=== PATIENT | female | born 1990 | race Caucasian/White ===

== ENCOUNTER 2019-10-11 11:27 | Emergency (ER) | payer SELFPAY ==
[2019-10-11 11:57] LABS: BILIRUBIN,URINE NEGATIVE (NEGATIVE); GLUCOSE, URINE (UA) NEGATIVE (NEGATIVE); KETONES,URINE (UA) NEGATIVE (NEGATIVE); LEUKOCYTE ESTERASE, URINE NEGATIVE (NEGATIVE); NITRITE,URINE POSITIVE (NEGATIVE); OCCULT BLOOD,URINE NEGATIVE (NEGATIVE); PROTEIN,URINE NEGATIVE (NEGATIVE); UROBILINOGEN,URINE 0.2 (NORMAL) E.U./dL (NORMAL)
[2019-10-11 11:59] LABS: CLARITY,URINE CLEAR (CLEAR)
--- NOTE | 2019-10-11 12:00 | ED Physician Documentation ---
History of Present Illness - Stated complaint Stated Complaint: ABD PX - Chief complaint Chief Complaint: Abd Pain - History obtained from History obtained from: Patient - History of Present Illness Timing: How many weeks ago (4) Pain level max: 3 Pain level now: 0 - Additonal information Additional information: 29-year-old female presents to the emergency department with a chief complaint of intermittent right lower quadrant abdominal pain for about the last month.She is unable to relate whether the pain is worse after activity or eating. She has had no fevers nausea or vomiting. Last menstrual period was approximately 1 month ago. However over the last week patient has noted that she has been having increased urinary frequency and often does not feel like she fully empties her bladder. This morning she felt chilled and sweaty and therefore decided to present to the emergency department for treatment. She denies any current or active abdominal pain. No pertinent past surgical history. Patient denies any history of diabetes, no recent weight loss. Review of Systems Constitutional: denies: Fever, Chills Cardiac: denies: Chest pain / pressure, Palpitations Respiratory: denies: Dyspnea, Cough GI: reports: Abdominal Pain. denies: Nausea, Vomiting, Constipation, Diarrhea, Hematemesis, Bloody / black stool : reports: Frequency, LMP (30 days). denies: Dysuria Skin: denies: Rash, Lesions Neurologic: denies: Generalized weakness, Syncope, Seizure PD PAST MEDICAL HISTORY - Past Surgical History Past Surgical History: No - Present Medications Home Medications: Ambulatory Orders Medication Instructions Recorded Confirmed Cephalexin [Keflex] 500 mg PO Q6H 7 Days capsule 02/13/16 Ibuprofen [Motrin] 800 mg PO Q8H PRN #20 tablet 02/13/16 Sulfamethoxazole/Trimethoprim 1 each PO BID 7 Days tablet 02/13/16 [Bactrim Ds Tablet] Cephalexin [Keflex] 500 mg PO BID #14 capsule 10/11/19 - Allergies Allergies/Adverse Reactions: Allergies Allergy/AdvReac Type Severity Reaction Status Date / Time No Known Drug Allergies Allergy Verified 10/11/19 11:35 - Social History Does the pt smoke?: Yes Smoking Status: Current every day smoker Does the pt drink ETOH?: No Does the pt have substance abuse?: No - Immunizations Immunizations are current?: Yes Immunizations: TDAP current <10years - POLST Patient has POLST: No PD ED PE NORMAL - General General: Alert and oriented X 3, No acute distress, Well developed/nourished - HEENT HEENT: PERRL, EOMI - Neck Neck: No adenopathy - Cardiac Cardiac: RRR, No murmur - Respiratory Respiratory: No respiratory distress, Clear bilaterally - Abdomen Abdomen: Normal bowel sounds, Non distended (No focal abdominal pain. Negative Hussein's. Negative McBurney's. no guarding or rebound). 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, No motor deficit, No sensory deficit Results - Vitals Vitals: Vital Signs - 24 hr 10/11/19 10/11/19 10/11/19 11:31 12:26 12:51 Temperature 36.7 C Heart Rate 121 H 84 80 Respiratory 18 16 16 Rate Blood Pressure 137/97 H 104/57 L 109/75 O2 Saturation 100 100 100 Oxygen O2 Source Room air - Labs Labs: Laboratory Tests 10/11/19 10/11/19 10/11/19 11:53 12:16 12:16 WBC 8.3 RBC 4.52 Hgb 14.0 Hct 41.2 MCV 91.2 MCH 31.0 MCHC 34.0 RDW 12.5 Plt Count 303 MPV 8.4 Neut # (Auto) 5.2 Lymph # (Auto) 2.2 Sargent # (Auto) 0.5 Eos # (Auto) 0.2 Baso # (Auto) 0.1 Absolute Nucleated RBC 0.00 Nucleated RBC % 0.0 Sodium 137 Potassium 4.0 Chloride 101 Carbon Dioxide 26 Anion Gap 10.0 BUN 19 Creatinine 0.8 Estimated GFR (MDRD) 84 L Glucose 82 Calcium 9.3 Total Bilirubin 0.6 AST 23 ALT 32 Alkaline Phosphatase 35 L Total Protein 6.9 Albumin 4.5 Globulin 2.4 Albumin/Globulin Ratio 1.9 Lipase 39 Urine Color YELLOW Urine Clarity CLEAR Urine pH 7.0 Ur Specific [place] 1.020 Urine Protein NEGATIVE Urine Glucose (UA) NEGATIVE Urine Ketones NEGATIVE Urine Occult Blood NEGATIVE Urine Nitrite POSITIVE H Urine Bilirubin NEGATIVE Urine Urobilinogen 0.2 (NORMAL) Ur Leukocyte Esterase NEGATIVE Urine RBC None Seen Urine WBC 0-3 Ur Squamous Epith Cells RARE Squamous Urine Bacteria Many H Ur Microscopic Review INDICATED Urine Culture Comments INDICATED Urine HCG, Qual NEGATIVE PD MEDICAL DECISION MAKING - ED course Complexity details: reviewed results, re-evaluated patient, d/w patient, d/w family ED course: 29-year-old female presents to the emergency department with chief complaint of intermittent right-sided abdominal pain with some urinary frequency for the last month. - Serum chemistry revealed no leukocytosis. Renal function is preserved. Her urine is consistent with infection. She has nitrites and rare bacteria. A culture is pending.However given chills and increasing pain I am concerned that she may have been a sending infection. Though not quite [place] at this time. - Patient given 1 g of ceftriaxone in the emergency department and will discharge with Keflex to be given twice a day for 7 days. We discussed emergent return precautions for concerns of worsening infection. At this time she appears hemodynamically stable her initial tachycardia has resolved after 1 L of IV fluids patient feels ready for discharge home. Departure - Departure Disposition: 01 Home, Self Care Clinical Impression: Cystitis Condition: Stable Instructions: ED Bladder Infec Cystitis Vs Pyelo Ch Prescriptions: Cephalexin [Keflex] 500 mg PO BID #14 capsule Comments: Cherelle it looks like you have an infection in your urine. This is the most likely cause of this intermittent pain. Please fill the prescription for the antibiotics and begin taking as directed. I would expect your pain to be better in the next 48 to 72 hours if your symptoms are worsening, you develop fevers, uncontrolled vomiting or you feel that you are not improving then please return for a second evaluation
[2019-10-11] MEDS ORDERED: SODIUM CHLORIDE 0.9% 1,000 ML IV STA (12:12)
[2019-10-11 12:15] LABS: BACTERIA,URINE Many /HPF (None Seen); RBC,URINE None Seen /HPF (0-5); SQUAMOUS EPITHELIAL CELL,UR RARE Squamous (<= Few)
[2019-10-11 12:24] LABS: BASOPHILS # (AUTO) 0.1 10^3/uL (0.0-0.1); BASOPHILS % (AUTO) 0.7 %; EOSINOPHILS # (AUTO) 0.2 10^3/uL (0.0-0.7); EOSINOPHILS % (AUTO) 2.9 %; LYMPHOCYTES # (AUTO) 2.2 10^3/uL (1.5-3.5); LYMPHOCYTES % (AUTO) 26.4 %; MEAN CORPUSCULAR VOLUME 91.2 fL (81.0-99.0); MEAN PLATELET VOLUME 8.4 fL (7.9-10.8); MONOCYTES # (AUTO) 0.5 10^3/uL (0.0-1.0); MONOCYTES % (AUTO) 6.3 %; NEUTROPHILS # (AUTO) 5.2 10^3/uL (1.5-6.6); NEUTROPHILS % (AUTO) 63.3 %; PLT - PLATELET COUNT 303 10^3/uL (130-450); RED BLOOD COUNT 4.52 10^6/uL (4.20-5.40); RED CELL DISTRIBUTION WIDTH 12.5 % (12.0-15.0); WHITE BLOOD COUNT 8.3 x10^3/uL (4.8-10.8)
[2019-10-11 12:24] LABS: HCG UR QUAL NEGATIVE
[2019-10-11 12:37] LABS: ALBUMIN 4.5 g/dL (3.2-5.5); ALBUMIN/GLOBULIN RATIO 1.9 (1.0-2.2); BILIRUBIN,TOTAL 0.6 mg/dL (0.2-1.0); CALCIUM 9.3 mg/dL (8.5-10.3); CREATININE 0.8 mg/dL (0.4-1.0); TOTAL PROTEIN 6.9 g/dL (6.7-8.2)
[2019-10-11] MEDS ORDERED: IBUPROFEN 600 MG TABLET PO STA (13:07)
[2019-10-11] MEDS ORDERED: cefTRIAXone 1 GM VIAL IM STA (13:08)
[2019-10-11] MEDS ORDERED: LIDOCAINE 1% 2 ML VIAL MC ONE (13:08)
[2019-10-11] MEDS ORDERED: cefTRIAXone 1 GM in SODIUM CHLORIDE 0.9% MINIBAG 100 ML IV STA (13:43)
[2019-10-11 14:16] VITALS: BP 115/73
== END 2019-10-11 14:25 | disposition home or self-care (01) ==
LOC: ED 11:27
DX: N30.90 Cystitis, unspecified without hematuria (principal); F17.200 Nicotine dependence, unspecified, uncomplicated
CPT/HCPCS: 36415; 80053; 81001; 81025; 83690; 85025; 87077; 87086; 87181; 96361; 96365; 99284; A9270; 81003

== ENCOUNTER 2020-01-17 08:00 | Outpatient (CLI) | payer MEDICAID ==
[2020-01-17 16:20] LABS: MUDS CUTOFF CONCENTRATIONS CUTOFF CONC BELOW:
[2020-01-17 16:59] LABS: BILIRUBIN,URINE NEGATIVE (NEGATIVE); GLUCOSE, URINE (UA) NEGATIVE (NEGATIVE); KETONES,URINE (UA) NEGATIVE (NEGATIVE); LEUKOCYTE ESTERASE, URINE NEGATIVE (NEGATIVE); NITRITE,URINE NEGATIVE (NEGATIVE); OCCULT BLOOD,URINE TRACE-INTA (NEGATIVE); PROTEIN,URINE NEGATIVE (NEGATIVE); UROBILINOGEN,URINE 0.2 (NORMAL) E.U./dL (NORMAL)
[2020-01-17 17:20] LABS: BACTERIA,URINE None Seen /HPF (None Seen); CLARITY,URINE CLEAR (CLEAR); RBC,URINE 0-5 /HPF (0-5); SQUAMOUS EPITHELIAL CELL,UR MOD Squamous (<= Few)
[2020-01-17 17:21] LABS: AMPHETAMINE SCREEN,URINE NEGATIVE (NEGATIVE); BENZODIAZEPINES SCREEN, URINE NEGATIVE (NEGATIVE); COCAINE SCREEN URINE NEGATIVE (NEGATIVE); METHADONE SCREEN, URINE NEGATIVE (NEGATIVE); METHAMPHETAMINES SCREEN, URINE NEGATIVE (NEGATIVE); OPIATE SCREEN, URINE NEGATIVE (NEGATIVE); OXYCODONE SCREEN, URINE NEGATIVE (NEGATIVE); PROPOXYPHENE SCREEN, URINE NEGATIVE (NEGATIVE); TRICYCLIC ANTIDEPRESSANT,URINE NEGATIVE (NEGATIVE)
== END 2020-01-17 23:59 | disposition home or self-care (01) ==
LOC: LAB.R 08:00
PROVIDERS: ATTEND Nurse Practitioner Obstetrics & Gynecology
DX: Z34.90 Encounter for supervision of normal pregnancy, unspecified, unspecified trimester (principal)
CPT/HCPCS: 80306; 81001; 87086

== ENCOUNTER 2020-01-17 12:43 | Outpatient (CLI) | payer MEDICAID ==
[2020-01-17 13:05] LABS: BASOPHILS # (AUTO) 0.1 10^3/uL (0.0-0.1); BASOPHILS % (AUTO) 0.4 %; EOSINOPHILS # (AUTO) 0.2 10^3/uL (0.0-0.7); EOSINOPHILS % (AUTO) 1.3 %; HGB - HEMOGLOBIN 11.8 g/dL (12.0-16.0); LYMPHOCYTES # (AUTO) 1.6 10^3/uL (1.5-3.5); LYMPHOCYTES % (AUTO) 11.3 %; MEAN CORPUSCULAR HEMOGLOBIN 31.1 pg (27.0-31.0); MEAN CORPUSCULAR HGB CONC 34.3 g/dL (32.0-36.0); MEAN CORPUSCULAR VOLUME 90.8 fL (81.0-99.0); MEAN PLATELET VOLUME 8.6 fL (7.9-10.8); MONOCYTES # (AUTO) 0.7 10^3/uL (0.0-1.0); MONOCYTES % (AUTO) 4.8 %; NEUTROPHILS # (AUTO) 11.1 10^3/uL (1.5-6.6); NEUTROPHILS % (AUTO) 81.5 %; PLT - PLATELET COUNT 429 10^3/uL (130-450); RED BLOOD COUNT 3.79 10^6/uL (4.20-5.40); RED CELL DISTRIBUTION WIDTH 12.1 % (12.0-15.0); WHITE BLOOD COUNT 13.7 x10^3/uL (4.8-10.8)
[2020-01-18 12:31] LABS: HEPATITIS B SURFACE ANTIGEN NON-REACTIVE (NON-REACTIVE); HEPATITIS C ANTIBODY NON-REACTIVE (NON-REACTIVE)
[2020-01-18 14:17] LABS: HIV AG/AB 4TH GEN NON-REACTIVE (NON-REACTIVE)
== END 2020-01-17 12:44 | disposition home or self-care (01) ==
LOC: LAB 12:43
PROVIDERS: ATTEND Nurse Practitioner Obstetrics & Gynecology
DX: Z34.90 Encounter for supervision of normal pregnancy, unspecified, unspecified trimester (principal)
CPT/HCPCS: 36415; 81599; 85025; 86592; 86762; 86787; 86803; 86850; 86870; 86880; 86900; 86901; 87340; 87389

== ENCOUNTER 2020-01-28 08:39 | Outpatient (CLI) | payer MEDICAID ==
--- NOTE | 2020-01-28 14:13 | Ultrasound Report ---
PROCEDURE: Right pulmonary radiopacities redemonstrated. The lungs are otherwise clear. INDICATIONS: SUPERVISION OF NORMAL PREG OUTSIDE/PRIOR DATING DATA: Last menstrual period (LMP): 09/11/2019. LMP-based estimated date of delivery (ELIZ): 06/17/2020. First dating scan (date and location): 01/28/2020. [facility]. Estimated date of delivery (ELIZ) from first dating scan: Twin A: 06/23/2020. Twin B: 06/20/2020 TECHNIQUE: Real-time scanning was performed of the fetus, with image documentation and biometric measurements. Endovaginal scanning: Not performed COMPARISON: None. FINDINGS: General: Please note, this patient is late to care and separate placentas cannot be appreciated. It i s unclear whether this is a monochorionic or dichorionic . Amniotic fluid index A: 15.1 cm. Amniotic fluid index B: 18.6 cm. Maternal cervical canal: 4.8 cm; normal length is 2.5 cm or more. FETUS A: Fetus is cephalic in presentation. Placental position is anterior. The inferior margin of the placenta is 1.6 cm from the cervical os. heart rate: 150 beats per minute. biometrics: Biparietal diameter: 4.4 cm, 19 weeks, 2 days Head circumference: Abdominal circumference: 16.1 cm, 18 weeks 6 days Femur length: 2.8 cm, 18 weeks 4 days Estimated gestational age from initial scan: not applicable. Composite gestational age from present scan: 19 weeks, 0 days Estimated weight and percentile: 273 g Measurement variability in biometric dating: +/- 10 days from 12-20 weeks gestation, +/- 2 weeks from 20-30 weeks gestation, +/- 3 weeks at 30 weeks gestation or later. Anatomic survey: Neuro: Not examined Nuchal skin fold: Not examined Face: Not examined Spine: Not examined Heart: 4 chambered heart is present. Ventricular outflow tracts are not well characterized. Diaphragm: Diaphragm is intact. Stomach: Left-sided stomach is present. Kidneys: No hydronephrosis. Normal is less than 5 mm in 2nd trimester, less than 7 mm in 3rd trimester. Cord: 3-vessel cord with marginal insertion. Bladder: Normal in size. Extremities: The right upper and right lower limbs have a normal appearance. Left lens could not be e valuated. FETUS B: Fetus is in breech presentation. Placental position is located anterior. The inferior margin of the placenta is 1.6 cm above the cervi manohar loss. heart rate: 133 beats per minute. biometrics: Biparietal diameter: 4.6 cm, 19 weeks, 6 days Head circumference: 16.6 cm, 19 weeks, 2 days Abdominal circumference: 14.7 cm, 20 weeks, 0 days Femur length: 2.9 cm, 18 weeks, 5 days Estimated gestational age from initial scan: not applicable. Composite gestational age from present scan: 19 weeks, 3 days Estimated weight and percentile: 291 g Measurement variability in biometric dating: +/- 10 days from 12-20 weeks gestation, +/- 2 weeks from 20-30 weeks gestation, +/- 3 weeks at 30 weeks gestation or later. Anatomic survey: Neuro: Not examined Nuchal skin fold: Not examined. Face: Not examined. Spine: Not examined. Heart: 4 chambered heart is present. Ventricular outflow tracts were not examined. Diaphragm: Diaphragm is intact. Stomach: Left-sided stomach is present. Kidneys: No hydronephrosis. Normal is less than 5 mm in 2nd trimester, less than 7 mm in 3rd trimester. Cord: 3-vessel cord has orthotopic insertion. Bladder: Normal in size. Extremities: The right upper and lower limbs were visualized. The left limbs were not visualized. IMPRESSION: 1. Markedly limited exam given patient late to care. 2 solitary placentas are not visualized. It is u nclear whether this is a monochorionic or chorionic gestation. 2. Marginal inferior insertion of the placenta 1.6 cm from the cervical os. 3. Marginal cord insertion of twin A. 4. Composite gestational age of twin A is 19 weeks, 0 days and composite gestational age of twin B is 19 weeks, 3 days. 4. Limited anatomy interrogated is within normal limits. There is a new central venous catheter, the tip of which is projected over the right atrium. Patient is status post median sternotomy and CABG. Reviewed by: Марина Varela MD on 01/28/2020 2:12 PM PDT Approved by: Марина Varela MD on 01/28/2020 2:12 PM PDT Station ID: [id number]
== END 2020-01-28 08:40 | disposition home or self-care (01) ==
LOC: DI 08:39
PROVIDERS: ATTEND Nurse Practitioner Obstetrics & Gynecology
DX: Z34.92 Encounter for supervision of normal pregnancy, unspecified, second trimester (principal)
CPT/HCPCS: 76805; 76810

== ENCOUNTER 2020-02-24 18:15 | Outpatient (CLI) | payer MEDICAID ==
[2020-02-24 18:49] VITALS: BP 126/77
--- NOTE | 2020-02-24 19:59 | PROVIDER PROGRESS NOTE ---
- HPI Chief Complaint: Other (Patient is a 29 yo at 23+5 wga with a affected by Olimpia twin gestation here with decreased movement. Usually feels activity at the uterine fundus below the epigastric area. Movement was less noticeable today. No VB/LOF/CTX. Presents for viability assessment.) Current : Vital Signs Temperature 99.5 F 02/24/20 18:45 Heart Rate 105 H 02/24/20 18:45 Respiratory Rate 16 02/24/20 18:45 Blood Pressure 126/77 02/24/20 18:45 O2 Saturation 100 02/24/20 18:45 Temperature 99.5 F 02/24/20 18:45 Heart Rate 105 H 02/24/20 18:45 Respiratory Rate 16 02/24/20 18:45 Blood Pressure 126/77 02/24/20 18:45 O2 Saturation 100 02/24/20 18:45 - Exam GEN: NAD HEENT: NCAT CV: RR RESP: nl effort ABD: gravid, S&NT/ND FH ~30 EXT: WWP, no LE edema PSYCH: appropriate affect NEURO: A&) FHT A: 165 FHT B: 167 tracing was obtained on both fetus A and B despite previable gestational age Both tracings were AGA Bedisde us was performed to identify individual heart rates. Both fetuses were confirmed as viable with independent hert rates and demonstrated activity on us - Procedures Service Date of procedure: 02/24/20 - Plan Plan: 29 yo at 23+5 wga with Olimpia twin gestation here with decreased movement viability demonstrated with EFM that was AGA for both fetus A and B Bedside us showed both active heart rates and ample movement in both twins Patient was reassured Warning signs reviewed Discharged to home
== END 2020-02-24 19:45 | disposition home or self-care (01) ==
LOC: WFO 18:15 → FBP 18:17 → WFO 19:45
PROVIDERS: ATTEND Obstetrics & Gynecology
DX: O36.8130 Decreased fetal movements, third trimester, not applicable or unspecified (principal); O30.032 Twin pregnancy, monochorionic/diamniotic, second trimester; Z3A.23 23 weeks gestation of pregnancy
CPT/HCPCS: 99213

== ENCOUNTER 2023-02-21 23:06 | Emergency (ER) | payer MEDICAID, OTHER ==
[2023-02-21 23:21] VITALS: BP 130/82; O2SAT 100
[2023-02-21] MEDS ORDERED: HYDROcod/ACETAM 5/325 MG TABLET PO STA (23:33)
[2023-02-21] MEDS ORDERED: AMOXICILLIN 250 MG CAPSULE PO STA (23:33)
[2023-02-21] MEDS ORDERED: HYDROcod/ACET 5/325 Prepack 4 PO STA (23:33)
--- NOTE | 2023-02-21 23:35 | ED Physician Documentation ---
PD HPI HEENT - Stated complaint Stated Complaint: LT SIDE FACE SWOLLEN - Chief complaint Chief Complaint: Heent - History obtained from History obtained from: Patient - Additional information Additional information: The patient comes to the emergency department with chief complaint of left facial swelling that started yesterday. She states that she has a lot of dental problems and that she believes the pain and swelling is coming from one of her maxillary teeth. The patient denies any drainage. No swelling of her tongue or throat. No fevers or chills. She states that she started taking Keflex last night and that so far has not done any good. She has had a total of 4 doses. The patient does not have a dentist and has not been in a long time. No other complaints at this time. 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 - Present Medications Home Medications: Ambulatory Orders Medication Instructions Recorded Confirmed Amoxicillin 500 mg PO TID 7 Days #21 cap 02/21/23 HYDROcod/ACETAM 5/325 [[place] 5/325] 1 - 2 tablet PO Q6H PRN #10 tablet 02/21/23 - Allergies Allergies/Adverse Reactions: Allergies Allergy/AdvReac Type Severity Reaction Status Date / Time No Known Drug Allergies Allergy Verified 02/21/23 23:16 - Social History Does the pt smoke?: Yes Smoking Status: Current every day smoker Does the pt drink ETOH?: No Does the pt have substance abuse?: No - Immunizations Immunizations are current?: Yes Immunizations: TDAP current <10years - POLST Patient has POLST: No PD ED PE NORMAL - Vitals Vital signs reviewed: Yes - General General: Alert and oriented X 3, No acute distress, Well developed/nourished - HEENT HEENT: Atraumatic, PERRL, EOMI, Moist mucous membranes, Dentition benign (Poor dentition with multiple missing or severely decayed teeth.), Other (Moderate edema without erythema, left face. Edematous, fluctuant gingival focus over the patient's left first molar stump. Tooth decayed down to the gumline. No drainage. No induration or fluctuance of cheek.) - Respiratory Respiratory: No respiratory distress - Derm Derm: Normal color, Warm and dry, No rash - Extremities Extremities: No deformity, Other (Grossly normal) - Neuro Neuro: Alert and oriented X 3 - Psych Psych: Normal mood, Normal affect Results - Vitals Vitals: Vital Signs - 24 hr 02/21/23 23:10 Temperature 36.8 C Heart Rate 114 H Respiratory 18 Rate Blood Pressure 130/82 H O2 Saturation 100 Oxygen O2 Source Room air PD Medical Decision Making - ED course Complexity details: considered differential, d/w patient ED course: The patient was started on amoxicillin here in the emergency department and given a dose of Vicodin as well. I discussed symptomatic management at home with her as well as the need to be consistent with antibiotics. I have prescribed amoxicillin and have advised the patient that she will need to get it first thing in the morning and take the next dose right then to avoid any lapse in antibiotic treatment. I discussed with the patient that we will take a few days for her symptoms to begin to turn around noticeably, but that she should return to the emergency department immediately, should she begin to experience any swelling of her tongue or throat. We have discussed methods to try to get the collection to drain, as well. I have given the patient phone numbers of multiple dental clinics in [place], as well as contact information for Dr. Barrett, the oral surgeon. Departure - Departure Disposition: 01 Home, Self Care Clinical Impression: Dental infection Condition: Stable Instructions: ED Abscess Tooth Follow-Up: OSVALDO BARRETT [Physician No Access] - Osvaldo Barrett DDS [Provider Admit Priv/Credential] - Prescriptions: Amoxicillin 500 mg PO TID 7 Days #21 cap HYDROcod/ACETAM 5/325 [[place] 5/325] 1 - 2 tablet PO Q6H PRN #10 tablet PRN Reason: Pain Comments: You have been started on amoxicillin this evening, one of the penicillin family antibiotics. This is the first choice for treatment of dental infections. It is important that you follow-up as soon as possible with a dentist to get definitive treatment of your teeth. Since this infection appears to involve a tooth that is broken off at the gumline, you will most likely need to see an oral surgeon or mortarman. You may try [facility] at [phone]. You may also try [facility] at [phone]. Ano ther option would be [facility] at [phone]. All of these are located in [place]. In addition, I have included contact information for our local oral surgeon, Dr. Barrett. Please call first thing tomorrow morning to make an appointment for follow-up. It will most likely take a few days of antibiotics before you begin to notice meaningful improvement in your symptoms. However, if you begin to notice that you are experiencing swelling that is increasingly involving your tongue and throat, please return to the emergency department immediately for reevaluation. A prescription for the rest of your antibiotics, as well as pain medication, has been electronically transmitted to the [facility] in [place]. Please pick your antibiotics up first thing tomorrow morning and take your next dose at that time. As far as other measures you may take, as we discussed, you may use a hot tea bag, talked in between your cheek and your gums at the point where it feels like the swelling is originating. If you do this for about 20 to 30 minutes at a time, reheating when the bag cools off, and repeat several times a day, you will most likely get the abscess to drain and that will help with the swelling and some of the discomfort. Forms: PCP List
== END 2023-02-21 23:58 | disposition home or self-care (01) ==
LOC: ED 23:06
DX: K04.7 Periapical abscess without sinus (principal); F17.200 Nicotine dependence, unspecified, uncomplicated
CPT/HCPCS: 99282; 99283; A9270

== ENCOUNTER 2023-08-12 05:38 | Emergency (ER) | payer SELFPAY ==
[2023-08-12 05:52] VITALS: O2SAT 100
--- NOTE | 2023-08-12 06:17 | ED Physician Documentation ---
PD HPI OPHTHO - Stated complaint Stated Complaint: R EYE PX - Chief complaint Chief Complaint: Heent - History obtained from History obtained from: Patient - Additional information Additional information: HPI from patient. 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 Patient wears contact lenses. There was no inciting event; the symptoms begin gradually after removing her contact lenses last night. Pain is associated with redness of the right eye and discharge. Denies history of similar symptoms. Review of Systems Eyes: reports: Discharge (clear/watery), Irritation. 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 ICER MACHINE: section - Present Medications Home Medications: Ambulatory Orders Medication Instructions Recorded Confirmed No Known Home Medications 08/12/23 08/12/23 - Allergies Allergies/Adverse Reactions: Allergies Allergy/AdvReac Type Severity Reaction Status Date / Time No Known Drug Allergies Allergy Verified 08/12/23 05:46 - Social History Does the pt smoke?: Yes Smoking Status: Current every day smoker Does the pt drink ETOH?: No Does the pt have substance abuse?: No - Immunizations Immunizations are current?: Yes Immunizations: TDAP current <10years - POLST Patient has POLST: No PD ED PE NORMAL - Vitals Vital signs reviewed: Yes - General General: Alert and oriented X 3, No acute distress, Well developed/nourished - HEENT HEENT: PERRL, EOMI PD ED PE EXPANDED - Eyes Eyes: Right eye, Normal eyelids, Injected conj/sclera, Corneal abrasion, Fluorescein uptake, Anterior chambers clear Results - Vitals Vitals: Oxygen O2 Source Room air PD Medical Decision Making - ED course Complexity details: considered differential, d/w patient ED course: small focus of fluorescein uptake central cornea (right) c/w corneal abrasion. given polytrim ophto drops with instruction in frequency and duration of use. Diagnosis, prognosis, and typical course d/w patient. Return precautions reviewed. Departure - Departure Disposition: 01 Home, Self Care Clinical Impression: Corneal abrasion Condition: Good Instructions: ED Eye Injury Corneal Abrasion Comments: Use the provided antibiotic eyedrops as follows: 1 drop in right eye 3 times per day for 1 week. Your symptoms should start improving and no more than 2 days, and should resolve within 5 to 7 days. Discharge Date/Time: 08/12/23 07:10
[2023-08-12] MEDS: PROPARACAINE 0.5% OPHTH DROPS 15 ML RIGHTEYE STA (06:24)
[2023-08-12] MEDS: POLYMYXIN B/TRIMETH OPHTH DROPS RIGHTEYE STA (07:03)
[2023-08-12 07:14] VITALS: BP 120/68
== END 2023-08-12 07:10 | disposition home or self-care (01) ==
LOC: ED 05:38
DX: S05.01XA Injury of conjunctiva and corneal abrasion without foreign body, right eye, initial encounter (principal); X58.XXXA Exposure to other specified factors, initial encounter; F17.200 Nicotine dependence, unspecified, uncomplicated
CPT/HCPCS: 99283; A9270; J3490